=== PATIENT | male | born 1990 | race Caucasian/White ===

== ENCOUNTER 2017-06-18 02:15 | Inpatient (IN) | payer BC ==
[2017-06-18 03:10] LABS: Hematocrit 44 % (42-52); Hemoglobin 15.1 g/dl (14.0-18.0); Mean Corpuscular HGB Conc 35 g/dl (31-36); Mean Corpuscular Hemoglobin 31 pg (27-31); Mean Corpuscular Volume 90 fL (80-94); Mean Platelet Volume 8 um3 (7.4-10.4); Red Blood Count 4.87 10^6/ul (4.0-5.4); Red Cell Distribution Width 15 % (10.5-15); White Blood Count 10.6 10^3/ul (3.5-10.8)
[2017-06-18 03:22] LABS: ALT 34 U/L (7-52); AST 26 U/L (13-39); Albumin 4.9 g/dL (3.2-5.2); Alkaline Phosphatase 65 U/L (34-104); Anion Gap 6 mmol/L (2-11); BUN/Creatinine Ratio 14.9 (8-20); Blood Urea Nitrogen 15 mg/dL (6-24); CO2 Carbon Dioxide 29 mmol/L (22-32); Chloride 106 mmol/L (101-111); EGFR Non-African American 88.6 (>60); Globulin 2.9 g/dL (2-4); Glucose 124 mg/dL (70-100); Potassium 3.8 mmol/L (3.5-5.0); Sodium 141 mmol/L (133-145); Total Protein 7.8 g/dL (6.4-8.9)
[2017-06-18 03:23] LABS: Acetaminophen < 15 mcg/mL; Alcohol 350 mg/dL (<10); Salicylate < 2.50 mg/dL (<30)
[2017-06-18 03:33] LABS: TSH (Thyroid Stimulating Horm) 0.28 mcIU/mL (0.34-5.60)
[2017-06-18 06:15] LABS: Urine Bilirubin Negative (Negative); Urine Glucose Negative (Negative); Urine Nitrite Negative (Negative)
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
[2017-06-18 06:21] LABS: Urine Bacteria Absent (Absent)
[2017-06-18 06:24] LABS: Benzodiazepine Urine Screen None Detected (None Detect)
[2017-06-18] MEDS ORDERED: Al Hydrox/Mg Hydrox/Simet LIQ* 30 ML UDC PO PRN (16:10)
[2017-06-18] MEDS ORDERED: Acetaminophen TAB* 325 MG PO PRN (16:10)
[2017-06-19] MEDS: Vitamin THERAPEUTIC TAB PO SCH (09:59)
--- NOTE | 2017-06-19 13:05 | PN ---
MHU: Group Therapy Note - Service Type Service Type: 15278 Group Psychotherapy - Cognitive Behavioral Group Therapy ( CBT):Patient was attentive and participatory in CBT programming this morning, and remained in good behavioral control. Patient expressed positive insights regarding relevant treatment interventions and goals.
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
[2017-06-20] MEDS: Vitamin THERAPEUTIC TAB PO SCH ×2 (10:48→11:35)
--- NOTE | 2017-06-20 11:18 | PN ---
MHU: Group Therapy Note - Service Type Service Type: 35830 Group Psychotherapy - Cognitive Behavioral Group Therapy ( CBT):Patient was attentive and participatory in CBT programming this morning, and remained in good behavioral control. Patient expressed positive insights regarding relevant treatment interventions and goals.
[2017-06-20] MEDS ORDERED: buPROPion TAB* 100 MG PO ONE (13:01)
--- NOTE | 2017-06-20 14:53 | PN ---
Subjective - Subjective Service Type: 06921 Hosp care 15 min low complexity Subjective: Patient reports willingness to trial antidepressant to prepare for outpatient treatment upon discharge. He states he did not sleep well, due to unfamiliar environment but declines offer of sleep aide. He is working on MMPI. He states stressors re: decisions about employment and housing. He denies SI. He denies cravings or withdrawal symptoms. Objective - Appearance Appearance: Well Developed/Nourished Dysmorphic Features: Yes Hygiene: Normal Grooming: Fairly Well Kept - Behavior Psychomotor Activities: Normal Exhibits Abnormal Movement: No - Attitude and Relatedness Attitude and Relatedness: Cooperative Eye Contact: Good - Speech Quality: Unpressured Latencies: Normal Quantity: Appropriate - Mood Patient's Decription of Mood: "Okay" - Affect Observed Affect: Depressed Affect Consistent with: Dysphoria - Thought Process Patient's Thought Process: Coherent, Goal Directed Thought Content: No Passive Wish, No Suicidal Planning, No Homicidal Ideation, No Paranoid Ideation - Sensorium Experiencing Hallucinations: No, Sensorium is Clear Type of Hallucinations: Visual: No, Auditory: No, Command: No - Level of Consciousness Level of Consciousness: Alert Orientation: Yes Intact, Yes Orientated to Time, Yes Orientated to Place, Yes Orientated to Person - Impulse Control Impulse Control: Tenuous - Insight and Judgement Insight and Judgement: Fair - Group Participation Particating in Group Activities: Yes - Medication Management Medication Management Adherence: Yes Assessment - Assessment Merits Inpatient Hospitalization: For Immediate Safety, For Stabilization, For Discharge Planning Inpatient DSM-IV Dx: I: major depressive d/o; alcohol use d/o. II: deferred. III: no active medical problem. IV: severe stressors r/t financial strain, employment. V: 55 Clinical Impression: 27yo male who presented to ED via police after making suicidal statement during DWI processing. This is his second psychiatric hospitalization in a year. He merits hospitalization for immediate safety, stabilization. Plan - Plan Treatment Plan: Name: MARY DEL CID Birthdate: 1990 [id number] add wellbutrin XL and complete MMPI. decrease observation to q30min and allow staff pass. May use computer for discharge planning. Continued Medication Management: Different Medication Medications: Current Medications Acetaminophen (Tylenol Tab*) 650 mg PO Q4H PRN PRN Reason: PAIN or TEMP > 101 F Al Hydrox/Mg Hydrox/Simethicone (Maalox Plus*) 30 ml PO Q4H PRN PRN Reason: INDIGESTION Multivitamins (Theragran Tab*) 1 tab PO DAILY [facility]AD Last Admin: 06/20/17 11:35 Dose: Not Given - Discharge Plan Discharge Plan: Outpatient Follow Up
[2017-06-21 08:07] VITALS: BP 144/82
[2017-06-21] MEDS: Vitamin THERAPEUTIC TAB PO SCH (08:21)
[2017-06-21] MEDS: BuPROPion XL* 150 MG TAB.XL PO SCH (08:21)
--- NOTE | 2017-06-21 13:48 | PN ---
Subjective - Subjective Service Type: 69069 Hosp care 15 min low complexity Subjective: Davy reports improved mood and denies side effects from wellbutrin. He reports his mother visited last evening, which went well except for him feeling like he does not want to make her worry about him. He states they discussed events leading to hospitalization and ways to try to avoid future recurrences. He is agreeable to pursue with outpatient services upon discharge and that [place] is likely the most convenient location. He does not have a current PCP. Patient reports spirituality group was thought-provoking and would like to speak with reflow operator, if possible. Objective - Appearance Appearance: Well Developed/Nourished Dysmorphic Features: No Hygiene: Normal Grooming: Well Kept - Behavior Psychomotor Activities: Normal - Attitude and Relatedness Attitude and Relatedness: Well Related Eye Contact: Good - Speech Quality: Unpressured Latencies: Normal Quantity: Appropriate - Mood Patient's Decription of Mood: "Okay" - Affect Observed Affect: Good Affect Consistent with: Euthymia - Thought Process Patient's Thought Process: Coherent, Goal Directed Thought Content: No Passive Wish, No Suicidal Planning, No Homicidal Ideation, No Paranoid Ideation - Sensorium Experiencing Hallucinations: No, Sensorium is Clear Type of Hallucinations: Visual: No, Auditory: No, Command: No - Level of Consciousness Level of Consciousness: Alert Orientation: Yes Intact, Yes Orientated to Time, Yes Orientated to Place, Yes Orientated to Person - Impulse Control Impulse Control: Intact - Insight and Judgement Insight and Judgement: Good - Group Participation Particating in Group Activities: Yes - Medication Management Medication Management Adherence: Yes Assessment - Assessment Merits Inpatient Hospitalization: For Discharge Planning, Pending Safe DC Plan Inpatient DSM-IV Dx: I: major depressive d/o; alcohol use d/o. II: deferred. III: no active medical problem. IV: severe stressors r/t financial strain, employment. V: 55 Clinical Impression: 27yo male who presented to ED via police after making suicidal statement during DWI processing. This is his second psychiatric hospitalization in a year. He merits hospitalization for immediate safety, stabilization. Will pursue discharge planning for tomorrow. Plan - Plan Treatment Plan: Name: DAVY DEL CID Birthdate: 1990 [id number] Continue intensive acute psychiatric hospitalization. Instructional Developer consult per patient request. May use computer for discharge planning. Continued Medication Management: Consider Medication Medications: Current Medications Acetaminophen (Tylenol Tab*) 650 mg PO Q4H PRN PRN Reason: PAIN or TEMP > 101 F Al Hydrox/Mg Hydrox/Simethicone (Maalox Plus*) 30 ml PO Q4H PRN PRN Reason: INDIGESTION Bupropion HCl (Wellbutrin Xl *) 150 mg PO DAILY VLAD PRN Reason: Protocol Last Admin: 06/21/17 08:21 Dose: 150 mg Multivitamins (Theragran Tab*) 1 tab PO DAILY [facility] Last Admin: 06/21/17 08:21 Dose: Not Given - Discharge Plan Discharge Plan: Outpatient Follow Up
--- NOTE | 2017-06-21 16:14 | PN ---
MHU: Group Therapy Note - Service Type Service Type: [id number] Group Psychotherapy - Medication Education Group: Patient attended group and presented with flat affect that did not vary with discussion. Although responsive to direct prompts to respond to questions, patient did not engage in spontaneous conversation.
[2017-06-22] MEDS: BuPROPion XL* 150 MG TAB.XL PO SCH (08:10)
[2017-06-22] MEDS: Vitamin THERAPEUTIC TAB PO SCH (08:12)
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
--- NOTE | 2017-06-22 16:40 | CONS ---
PSYCHOLOGICAL REPORT: DATE OF CONSULT: 06/21/17 REASON FOR REFERRAL: Davy was referred for personality testing in order to assist with diagnostic impression including concerns regarding lethality. TESTS ADMINISTERED: Davy completed the [place] Multiphasic Personality Inventory - 2 (MMPI-2). Davy was given feedback in individual conversation and has been seen by this designer writer on two occasions in cognitive behavioral psychotherapy context as well. RELEVANT HISTORY: This is Davy's second psychiatric admission with a prior occurring at [facility] in [place] in July 2016, where he remained inpatient for approximately 2 weeks' time. He described having made suicidal threats in front of roommates at that point in time, after he had been apparently fired from a job. Historically, he has been prescribed Celexa, Wellbutrin and methylphenidate. He also describes while at the [facility] in [facility] having adverse reactions to anti-anxiety medications. Davy graduated from [employer] with a degree in environmental engineering and of late has been working for a [employer]. 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 He intends to look for alternative work after being discharged. He also describes intentions of moving back in with his mother, who lives in [place], [place], after experiencing some difficulties with his roommates in [place], [place]. Davy was admitted after being arrested for DWI or he was found to have a blood alcohol content of 350. He was placed on the inpatient unit after [place]. Other relevant history includes a family leave of absence while at [employer] secondary to depressive symptoms. He went home to help manage his father's illness at that time and his father eventually about 3 years ago. BEHAVIORAL OBSERVATIONS: Davy is a 27-year-old male who is pleasant in conversation. He is cooperative with our efforts to treat and assess and has been attentive and participatory in unit programming. He describes intentions of engaging in outpatient substance followup as well as mental health secondary to what he describes as escalating drinking occurring as his job stressors have mounted and his dissatisfaction has increased. He described some prior experience in outpatient substance abuse and impresses as having a good sense of what has been helpful to him. Presently, Davy presents with good affect and is euthymic in conversation. 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 He is empathic with peers and impresses as being a good insight oriented cognitive psychotherapy candidate. TEST RESULTS: Davy provides a fairly distressed profile on this administration of the MMPI-2, having elevated 2 of the 3 stressor scales significantly (FB equals 100). He subsequently elevates 6 of the 10 clinical indices with depression being indicated most acutely (T = 85). His other elevations occurring on psychopathic deviate, paranoia, and anxiety indices all hang at a T -score of 75. Discussion here addressed managing significant depressive features as well as angry undercurrents. Discussion also addressed a sense of emotional alienation as well as his sense of defensiveness in terms of avoiding interactions with others. Also of significance, Davy has a very low score on the hypomania scale (T = 38) which is supportive of a significant major depressive episode occurring. Persons with similar profiles often experience vegetative symptoms of depression and endorse increased feelings of fatigue and feeling overwhelmed. IMPRESSIONS AND RECOMMENDATIONS: Davy impresses as having both current and historical difficulties in managing depressive symptomatology. He feels his most current stressor is feeling overwhelmed by the sheer volume of his work, which is coupled by historical anxieties about fears of failure. He described fear of failure as encroaching a great deal in his college years while at [employer], but continues to exert a negative influence on his emotional experience. He described some mild OCD type symptomatology in regards to orderliness and counting numbers at times. Continuing work should try to address these symptoms and placed him in a context of recurrent depression. Davy impresses as being very open to positive engagement in therapy presently and hopefully can maintain sobriety as a means of improving on managing depressive features. [id number]/[facility] #: [id number] GUTIERREZ
== END 2017-06-22 16:07 | disposition home or self-care (01) | DRG 885 ==
LOC: ED 02:15 → BSU 15:17
PROVIDERS: ADMIT Psychiatry & Neurology Psychiatry; ATTEND Psychiatry & Neurology Psychiatry
PROC: GZHZZZZ Group Psychotherapy (ICD-10-PCS; principal; 2017-06-18)
DX: F33.2 Major depressive disorder, recurrent severe without psychotic features (principal); F41.1 Generalized anxiety disorder; Z72.89 Other problems related to lifestyle; Z88.8 Allergy status to other drugs, medicaments and biological substances; Z81.8 Family history of other mental and behavioral disorders; Z81.1 Family history of alcohol abuse and dependence; Z82.61 Family history of arthritis; Z82.3 Family history of stroke
CPT/HCPCS: 36415; 80053; 80307; 80320; 80329; 81003; 81015; 84443; 85025; 90853; 96102; 99222; 99231; 99238; A9270-GY; G0480